=== PATIENT | female | born 1990 | race Caucasian/White ===

== ENCOUNTER 2016-02-09 15:04 | Emergency (ER) | payer OTHER ==
[~2016-02-09] VITALS: Ht 167.6 cm; Wt 65.9 kg
[~2016-02-09 15:04] MED LIST: PRENTAB26 PO
[2016-02-09 15:26] VITALS: Ht 167.6 cm; Wt 65.9 kg
[2016-02-09 16:58] LABS: BASO % 0.3 %; BASO ABS # 0.02 K/uL (0-0.2); COMPLETE YES; EOS % 1.5 %; HEMATOCRIT 36.2 % (37-47); IG% 0.1 %; LYMPH % 30.5 %; LYMPH ABS # 2.39 K/uL (1.2-3.4); MEAN CELL VOLUME 85.4 fL (80-100); MEAN CORPUSCULAR HEMOGLOBIN 29.7 pg (25-34); MEAN CORPUSCULAR HGB CONC 34.8 g/dl (32-36); MEAN PLATELET VOLUME 10.8 fL (7.4-10.4); MONO % 10.8 %; NEUT % 56.8 %; PLATELET COUNT 252 K/uL (130-400); RED BLOOD COUNT 4.24 M/uL (4.2-5.4); WHITE BLOOD COUNT 7.84 K/uL (4.8-10.8)
[2016-02-09 17:19] LABS: BUN/CREATININE RATIO 11.6 (10-20); CALCIUM 8.6 mg/dl (8.5-10.1); CREATININE 0.82 mg/dl (0.60-1.20)
[2016-02-09 17:21] LABS: ALB/GLOB RATIO 1.2 (0.9-2)
--- NOTE | 2016-02-09 18:11 | DIAGNOSTIC IMAGING REPORT ---
Limited ultrasound ECTOPIC CLINICAL HISTORY: EVAL IUP, VAGINAL BLEEDING pain TECHNIQUE: Transabdominal as well as transvaginal ultrasound COMPARISON STUDY: None FINDINGS: Uterus is midline. Endometrium is prominent at 11 mm. No well-defined intrauterine gestational sac. The ovaries are normal. Vascular flow is confirmed to both ovaries. Trace free fluid within the pelvic cul-de-sac. IMPRESSION: 1. Moderate endometrial prominence at 11 mm. 2. No evidence for an intrauterine gestational sac. 3. Normal vascular flow is confirmed to the ovaries. 4.. 7 mm left ovarian cyst Electronically signed by: Diogo Arndt M.D. 02/09/2016 6:09 PM
[2016-02-09 18:34] VITALS: BP 104/63; PULSE 69; TEMP 36.8; O2SAT 100
[2016-02-09 18:50] VITALS: BP 127/91; PULSE 101; TEMP 36.8; O2SAT 100
--- NOTE | 2016-02-09 19:00 | EMERGENCY ROOM VISIT NOTE ---
ED Visit Note First contact with patient: 16:21 CHIEF COMPLAINT: Vaginal bleeding, 6-7 weeks HISTORY OF PRESENT ILLNESS: Patient is a 6-7 week 25-year-old white female who presents to emergency department for evaluation of vaginal bleeding. Her last menstrual period was 12/22/15. She had 2 positive home test at home last week after she missed her period. She had been feeling well and was in her usual state of health until this morning, when she noted some bright red vaginal bleeding. She has only had to change her pad once today. She has some slight "pinching", but denies any cramping. She has not yet seen an OB for this . She denies any low back pain. She does not feel dizzy, weak, or faint. There has been no sweating or loss of consciousness. She denies trauma to the abdomen, recent illnesses, or fever. She is A-. REVIEW OF SYSTEMS: Review of systems as per HPI. All other systems reviewed were negative. 10 systems reviewed. PMH: Electronic medical records are reviewed and summarized as above/below. See Problem List. SOCIAL HISTORY: Patient lives at home. She is employed. Nonsmoker. PHYSICAL EXAM: Vital Signs: Reviewed Nurse's notes. CONSTITUTIONAL: Patient is a well-appearing 25-year-old white female who is awake and alert and in no acute distress. EYES: Pupils equal, round, reactive to light and accommodation. EOMs intact without nystagmus. Sclera are anicteric. ENT: Tympanic membranes intact, with normal landmarks. External canals are clear. Oral and nasopharynx are clear. Mucous membranes are moist, no lesions , tongue and gums appear normal. NECK: No bruits auscultated. Supple without lymphadenopathy. No thyromegaly. No meningeal signs. Full active range of motion without discomfort. CARDIOVASCULAR: Regular rate and rhythm, with normal S1 and S2, no murmur or gallop or rub is heard. No carotid bruits auscultated. No JVD. Peripheral pulses easily palpable. RESPIRATORY: Breath sounds equal and clear to auscultation without wheezes, rales, or rhonchi heard. Full and equal chest expansion without accessory muscle use or retractions. ABDOMEN: Bowel sounds are present. Abdomen is soft, nontender and nondistended. No guarding, rebound or rigidity. INTEGUMENTARY: No lesions or rash, normal skin turgor. LYMPH: No lymphadenopathy. EMERGENCY DEPARTMENT COURSE: IV access was obtained and laboratory studies were collected. H&H is 12.6 and 36.2. Platelets and coags are normal. Chemistries are unremarkable. Her quantitative hCG level is 7. Her blood type is A-. Pelvic ultrasound as noted below showed endometrial prominence measuring 11 mm, with no evidence for an intrauterine gestational sac. There was a small left- sided ovarian cyst. No evidence for torsion. The patient was administered RhoGAM per protocol. Ectopic and bleeding precautions were outlined with the patient. Discussed with her given her low hCG level, I suspected a threatened miscarriage, although this could also indicate a very early and the importance of close follow-up with BUSINESS OFFICE REPRESENTATIVE was discussed with her. She is discharged home with her family in good condition. Differential diagnoses also entertained included first trimester vaginal bleeding, subchorionic hemorrhage, hemorrhagic cystitis, PID, cervicitis, among others. Limited ultrasound ECTOPIC CLINICAL HISTORY: EVAL IUP, VAGINAL BLEEDING pain TECHNIQUE: Transabdominal as well as transvaginal ultrasound COMPARISON STUDY: None FINDINGS: Uterus is midline. Endometrium is prominent at 11 mm. No well-defined intrauterine gestational sac. The ovaries are normal. Vascular flow is confirmed to both ovaries. Trace free fluid within the pelvic cul-de-sac. IMPRESSION: 1. Moderate endometrial prominence at 11 mm. 2. No evidence for an intrauterine gestational sac. 3. Normal vascular flow is confirmed to the ovaries. 4.. 7 mm left ovarian cyst Problem List Medical Problems: (1) Headache Status: Resolved (2) HYPOTENSION NOS Status: Resolved (3) Syncope and collapse Status: Resolved Current/Historical Medications Scheduled Multivit/Min/Iron/Fol Ac/Pren ( Vitamin), 1 TAB PO DAILY Allergies Uncoded Allergies: BABY OIL (Allergy, Mild, HIVES, 01/26/15) Vital Signs Date Time Temp Pulse Resp B/P Pulse Ox O2 Delivery O2 Flow Rate FiO2 02/09/16 18:50 36.8 101 18 127/91 100 02/09/16 18:34 36.8 69 16 104/63 100 02/09/16 16:51 72 16 97/65 98 Room Air 02/09/16 15:26 36.8 81 18 119/69 100 Room Air Laboratory Results 02/09/16 16:47 Red Blood Count 4.24, Mean Corpuscular Volume 85.4, Mean Corpuscular Hemoglobin 29.7, Mean Corpuscular Hemoglobin Concent 34.8, Mean Platelet Volume 10.8, Neutrophils (%) (Auto) 56.8, Lymphocytes (%) (Auto) 30.5, Monocytes (%) (Auto) 10.8, Eosinophils (%) (Auto) 1.5, Basophils (%) (Auto) 0.3, Neutrophils # (Auto ) 4.45, Lymphocytes # (Auto) 2.39, Monocytes # (Auto) 0.85, Eosinophils # (Auto ) 0.12, Basophils # (Auto) 0.02 02/09/16 16:47 Test 02/09/16 16:47 White Blood Count 7.84 K/uL (4.8-10.8) Red Blood Count 4.24 M/uL (4.2-5.4) Hemoglobin 12.6 g/dL (12.0-16.0) Hematocrit 36.2 % (37-47) Mean Corpuscular Volume 85.4 fL (80-100) Mean Corpuscular Hemoglobin 29.7 pg (25-34) Mean Corpuscular Hemoglobin Concent 34.8 g/dl (32-36) Platelet Count 252 K/uL (130-400) Mean Platelet Volume 10.8 fL (7.4-10.4) Neutrophils (%) (Auto) 56.8 % Lymphocytes (%) (Auto) 30.5 % Monocytes (%) (Auto) 10.8 % Eosinophils (%) (Auto) 1.5 % Basophils (%) (Auto) 0.3 % Neutrophils # (Auto) 4.45 K/uL (1.4-6.5) Lymphocytes # (Auto) 2.39 K/uL (1.2-3.4) Monocytes # (Auto) 0.85 K/uL (0.11-0.59) Eosinophils # (Auto) 0.12 K/uL (0-0.5) Basophils # (Auto) 0.02 K/uL (0-0.2) RDW Standard Deviation 39.9 fL (36.4-46.3) RDW Coefficient of Variation 12.8 % (11.5-14.5) Immature Granulocyte % (Auto) 0.1 % Immature Granulocyte # (Auto) 0.01 K/uL (0.00-0.02) Prothrombin Time 11.0 SECONDS (9.0-12.0) Prothromb Time International Ratio 1.0 (0.9-1.1) Activated Partial Thromboplast Time 25.4 SECONDS (21.0-31.0) Partial Thromboplastin Ratio 1.0 Anion Gap 7.0 mmol/L (3-11) Est Creatinine Clear Calc Drug Dose 98.1 ml/min Estimated GFR () 115.3 Estimated GFR (Non- 99.5 BUN/Creatinine Ratio 11.6 (10-20) Calcium Level 8.6 mg/dl (8.5-10.1) Total Bilirubin 1.0 mg/dl (0.2-1) Aspartate Amino Transf (AST/SGOT) 11 U/L (15-37) Alanine Aminotransferase (ALT/SGPT) 16 U/L (12-78) Alkaline Phosphatase 83 U/L (45-117) Total Protein 7.1 gm/dl (6.4-8.2) Albumin 3.8 gm/dl (3.4-5.0) Globulin 3.3 gm/dl (2.5-4.0) Albumin/Globulin Ratio 1.2 (0.9-2) Human Chorionic Gonadotropin, Quant 7 mIU/mL Departure Information Impression Primary Impression: Vaginal bleeding Referrals No Doctor, Assigned (PCP) Patient Instructions A Signature Page, My [facility] [place] [facility] Additional Instructions Acetaminophen(Tylenol) may be used for fever or pain. Use 1000mg every six hours as needed. Avoid using more than 3000mg in a 24 hour period. Rest and avoid any heavy lifting or strenuous activity. Strict vaginal rest-no tampons, douching or intercourse. Drink plenty of fluids. Diet as tolerated. Follow up with BUSINESS OFFICE REPRESENTATIVE by phone tomorrow to set up a follow-up appointment. Return to the ED for worsening pain, heavier bleeding (soaking a pad in an hour or less, passing clots larger than your fist), lightheadedness, dizziness, passing out, worsening of her condition or as needed.
[2016-02-09 19:22] VITALS: BP 108/65; PULSE 58; O2SAT 98
== END 2016-02-09 19:24 | disposition home or self-care (01) ==
LOC: C.EDB 15:06 → C.EDC 19:24
DX: O99.89 Other specified diseases and conditions complicating pregnancy, childbirth and the puerperium (principal); N93.9 Abnormal uterine and vaginal bleeding, unspecified; Z3A.01 Less than 8 weeks gestation of pregnancy

== ENCOUNTER 2016-12-31 01:11 | Emergency (ER) | payer OTHER, BC ==
[~2016-12-31] VITALS: Ht 167.6 cm; Wt 75.5 kg
[2016-12-31 01:14] VITALS: TEMP 36.9; Ht 167.6 cm; Wt 75.5 kg
--- NOTE | 2016-12-31 01:45 | EMERGENCY ROOM VISIT NOTE ---
History First contact with patient: 01:21 Chief Complaint: LACERATION/CUT (SUT/DERMABOND) Stated Complaint: COFFEE URN FELL ON HEAD,LACERATION/PAIN, 22WKS PRG Nursing Triage Summary: Patient reports a coffee pot fell on her head at work. Patient has blood and swelling to top of head. Unable to visualize laceration at this time. History of Present Illness The patient is a 26 year old female who presents to the Emergency Room with complaints of a laceration to her head. The patient states that she was at work and a coffee pot fell onto her head. She reports pain in her head which she rates a 7/10. There was no loss of consciousness. She reports some nausea , but no vomiting. No blurred vision or slurred speech. Tetanus shot is up-to- date. There is no active bleeding. The patient reports she is 22 weeks . Review of Systems A complete 10 point review of systems was reviewed with the patient with pertinent positives and negatives as per history of present illness. All else were negative. Past Medical/Surgical History Medical Problems: (1) Headache (2) HYPOTENSION NOS (3) No Known Active Medical Problems (4) Syncope and collapse Social History Smoking Status: Never Smoker Housing Status: lives with family Current/Historical Medications Scheduled Multivit/Min/Iron/Fol Ac/Pren ( Vitamin), 1 TAB PO DAILY Physical Exam Vital Signs Date Time Temp Pulse Resp B/P (MAP) Pulse Ox O2 Delivery O2 Flow Rate FiO2 12/31/16 01:51 86 18 127/72 100 12/31/16 01:14 36.9 82 18 123/70 100 Room Air Physical Exam VITALS: Vitals are noted on the nurse's note and reviewed by myself. Vital signs stable. GENERAL: This is a 26-year-old female, in no acute distress, nondiaphoretic, well-developed well-nourished. SKIN: There is a 1.5 cm laceration to the parietal aspect of the scalp as well as a small abrasion. There is no active bleeding. The laceration is non- gaping. HEAD: Normocephalic atraumatic. EARS: External auditory canals clear, tympanic membranes pearly delaney without erythema or effusion bilaterally. No hemotympanum. EYES: Pupils equal round and reactive to light and accommodation. Extraocular movements intact. NECK: Supple without nuchal rigidity. Cervical spine is nontender. HEART: Regular rate and rhythm without murmurs gallops or rubs. LUNGS: Clear to auscultation bilaterally without wheezes, rales or rhonchi. MUSCULOSKELETAL: Strength 5/5 throughout. NEURO: Patient was alert and oriented to person place and time. Normal sensation to light and sharp touch. No focal neurological deficits. Medical Decision & Procedures Medical Decision Differential diagnosis includes concussion, intracranial hemorrhage, contusion, scalp laceration, among others. The patient was evaluated as above. She is neurologically intact and there is no evidence of intracranial hemorrhage or severe head injury. The laceration was repaired using Dermabond. The patient tolerated the procedure well. Customary head injury precautions were reviewed with the patient. She verbalized understanding of my assessment and treatment plan and was discharged home in good condition. Medication Reconcilliation Current Medication List: was personally reviewed by me Blood Pressure Screening Patient's blood pressure: Normal blood pressure Impression Primary Impression: Laceration of scalp Additional Impression: Closed head injury Departure Information Dispostion Home / Self-Care Condition GOOD Referrals No Doctor, Assigned (PCP) Patient Instructions ED Head Injury Closed, My [facility] Additional Instructions Allow the skin glue to fall off on its own in the next 2-3 days. Tylenol as needed for pain. Return to the emergency department with vomiting, passing out, blurred vision, slurred speech, or any other new/concerning symptoms. Problem Qualifiers Primary Impression: Laceration of scalp Encounter type: initial encounter Qualified Codes: S01.01XA - Laceration without foreign body of scalp, initial encounter Additional Impression: Closed head injury Encounter type: initial encounter Qualified Codes: S09.90XA - Unspecified injury of head, initial encounter
[2016-12-31 01:51] VITALS: BP 127/72; PULSE 86; O2SAT 100
== END 2016-12-31 01:53 | disposition home or self-care (01) ==
LOC: C.EDB 01:13 → C.EDA 01:53
DX: S01.01XA Laceration without foreign body of scalp, initial encounter (principal); W22.8XXA Striking against or struck by other objects, initial encounter; Y92.89 Other specified places as the place of occurrence of the external cause; Y99.0 Civilian activity done for income or pay; Z3A.22 22 weeks gestation of pregnancy

== ENCOUNTER 2017-04-29 14:10 | Inpatient (IN) | payer BC ==
[~2017-04-29] VITALS: Ht 165.1 cm; Wt 84.5 kg
[~2017-04-29 14:10] MED LIST changes: +CEFAZOLIN IV 2,000 MG in SYRINGE 0 ML IV SCH
[2017-04-29 14:28] VITALS: Ht 165.1 cm; Wt 84.5 kg
[2017-04-29] MEDS ORDERED: LACTATED RINGER'S 1000ML 1,000 ML IV SCH ×2 (15:14→18:17)
[2017-04-29] MEDS ORDERED: CITRIC ACID/SODIUM CITRATE 15 ML UDC PO ONE (15:15)
[2017-04-29] MEDS ORDERED: PROMETHAZINE HCL INJ 25 MG/ML 1 ML VIAL ONE (15:21)
[2017-04-29] MEDS ORDERED: OXYTOCIN INJ 10 UNITS/ML VIAL ONE ×3 (15:21→17:57)
[2017-04-29] MEDS ORDERED: FENTANYL CITRATE INJ 50 MCG/1 ML 2 ML VIAL ONE (15:21)
[2017-04-29] MEDS ORDERED: MoRPHine SULFATE PF 1 MG/ML 10 ML AMP/VIAL ONE (15:21)
[2017-04-29 15:34] LABS: BASO % 0.2 %; BASO ABS # 0.02 K/uL (0-0.2); EOS % 0.4 %; EOS ABS # 0.04 K/uL (0-0.5); HEMATOCRIT 33.5 % (37-47); HEMOGLOBIN 11.7 g/dL (12.0-16.0); IG# 0.08 K/uL (0.00-0.02); LYMPH % 18.3 %; LYMPH ABS # 1.86 K/uL (1.2-3.4); MEAN CELL VOLUME 88.2 fL (80-100); MEAN CORPUSCULAR HEMOGLOBIN 30.8 pg (25-34); MEAN CORPUSCULAR HGB CONC 34.9 g/dl (32-36); MEAN PLATELET VOLUME 10.1 fL (7.4-10.4); MONO % 7.7 %; MONO ABS # 0.78 K/uL (0.11-0.59); NEUT % 72.6 %; NEUT ABS # 7.39 K/uL (1.4-6.5); PLATELET COUNT 225 K/uL (130-400); RED CELL DISTRIBUTION WIDTH CV 14.1 % (11.5-14.5); RED CELL DISTRIBUTION WIDTH SD 45.7 fL (36.4-46.3); WHITE BLOOD COUNT 10.17 K/uL (4.8-10.8)
--- NOTE | 2017-04-29 16:10 | HISTORY & PHYSICAL EXAMINATION ---
DATE OF ADMISSION: 04/29/2017 CHIEF COMPLAINT: Term and breech presentation. HISTORY OF PRESENT ILLNESS: The patient is a 26-year-old 3, para 1, at 39 weeks and 1 day gestation, who was sent over to labor and delivery on the afternoon of 04/29/2017 secondary to baby being in the breech position at her visit today. A nonstress test was completed and noted to be category 1. An ultrasound of her positioning was performed, noting that the baby was in the breech position and funic presentation. Therefore, she was sent over to labor and delivery for a primary section. Her care has been uncomplicated otherwise. PAST MEDICAL HISTORY: The patient denies any previous medical history. PAST SURGICAL HISTORY: The patient denies any previous surgeries. She had 1 term vaginal delivery. SOCIAL HISTORY: The patient denies tobacco, alcohol or drug use. MEDICATIONS: vitamins. PHYSICAL EXAMINATION: VITAL SIGNS: Please see vital sign spread sheet. GENERAL: The patient is awake, alert and oriented x3. She is in no acute distress. HEART: Regular rate and rhythm. LUNGS: Clear to auscultation bilaterally. ABDOMEN: Soft, gravid uterus, appropriate for gestational age. VAGINAL: heart tones category 1. Contractions are regular. ASSESSMENT AND PLAN: The patient will be admitted to labor and delivery for a primary section secondary to breech presentation and funic presentation.
[2017-04-29] MEDS ORDERED: PHENYLEPHRINE HCL INJ 10 MG/ML VIAL ONE (17:40)
--- NOTE | 2017-04-29 18:22 | [facility] Post Operative Brief Note ---
Immediate Operative Summary Operative Date Apr 29, 2017. Pre-Operative Diagnosis Term , breech presentation, funic presentation, erin. Post-Operative Diagnosis Same as above. Procedure(s) Performed Primary caesarean section. Delivery of live female child at 1742. Surgeon Dr. Oliver Knotter Surgeon(s) Dr. Zuniga Estimated Blood Loss 500cc Findings Consistent with Post-Op Diagnosis Fluids (cc crystalloids) 1000 Specimens A: Placenta-exam B: Cord blood Drains Ward to gravity Anesthesia Type Spinal Complication(s) none Disposition Accompanied Pt To Recover: no Disposition: L&D
[2017-04-29] MEDS ORDERED: SODIUM CHLORIDE 0.9% 1000ML 1,000 ML IV PRN (18:30)
[2017-04-29] MEDS ORDERED: NALBUPHINE HCL INJ 10 MG/ML AMP IV PRN (18:30)
[2017-04-29] MEDS ORDERED: BENZOCAINE 20% AER SPR 82.5 GM CAN EXT PRN (18:30)
[2017-04-29] MEDS ORDERED: MoRPHine SULFATE 2 MG/ML CARP IV PRN (18:30)
[2017-04-29] MEDS ORDERED: EpHEDrine SULFATE INJ 50 MG/ML AMP IV PRN (18:30)
[2017-04-29] MEDS ORDERED: DIPHTHERIA/TETANUS/PERTUSSIS 0.5 ML SYR/VIAL IM. ONE (18:30)
[2017-04-29] MEDS ORDERED: SENNA 8.6 MG TAB PO PRN (18:30)
[2017-04-29] MEDS ORDERED: ONDANSETRON INJ 2 MG/ML 2 ML VIAL IV PRN (18:30)
[2017-04-29] MEDS ORDERED: NALOXONE HCL 0.4 MG/1 ML VIAL/CARP IV PRN (18:30)
[2017-04-29] MEDS ORDERED: SUPERCREAM 0.870 % 15GM JAR EXT PRN (18:30)
[2017-04-29] MEDS ORDERED: DiphenhydrAMINE HCL 50 MG/ML VIAL IV PRN (18:30)
[2017-04-29] MEDS ORDERED: MAGNESIUM HYDROXIDE SUSP 30 ML UDC PO PRN (18:30)
[2017-04-29] MEDS ORDERED: NO NARCOTICS OR SEDATIVES SCH (18:30)
[2017-04-29] MEDS ORDERED: HYDROCORTISONE ACETATE 25 MG SUPP PR PRN (18:30)
[2017-04-29] MEDS ORDERED: MoRPHine SULFATE PF 1 MG/ML 10 ML AMP/VIAL INT SPINAL PRN (18:30)
[2017-04-29] MEDS ORDERED: LANOLIN OINT EXT PRN (18:30)
[2017-04-29] MEDS ORDERED: KETOROLAC TROMETHAMINE 30 MG/ML VIAL IV. PRN (18:30)
[2017-04-29] MEDS ORDERED: NALOXONE HCL INJ 1 MG in SODIUM CHLORIDE 0.9% 1000ML 1,000 ML IV PRN (18:30)
[2017-04-29] MEDS ORDERED: LACTATED RINGER'S 1000ML 500 ML IV PRN (18:30)
[2017-04-29] MEDS ORDERED: NALOXONE HCL INJ 0.08 MG in SYRINGE 1.8 ML IV PRN (18:30)
--- NOTE | 2017-04-29 18:30 | Anesthesiology Progress Note ---
Anesthesia Post Op Note Date & Time Apr 29, 2017 at 18:30 Notes Mental Status: alert / awake / arousable, participated in evaluation Pt Amnestic to Procedure: Yes Nausea / Vomiting: adequately controlled Pain: adequately controlled Airway Patency, RR, SpO2: stable & adequate BP & HR: stable & adequate Hydration State: stable & adequate Neuraxial Anesthesia: was administered, sensory block is resolving Anesthetic Complications: no major complications apparent
[2017-04-29] MEDS: OXYTOCIN INJ 30 UNITS in LACTATED RINGER'S 1000ML 1,000 ML IV SCH (20:16)
--- NOTE | 2017-04-29 20:39 | OPERATIVE REPORT ---
DATE OF OPERATION: 04/29/2017 PREOPERATIVE DIAGNOSES: 1. Term intrauterine at 39 weeks and 1 day gestation. 2. Breech presentation. 3. Funic presentation. 4. Erin. POSTOPERATIVE DIAGNOSES: Same. OPERATIVE PROCEDURE: Primary low transverse section. SURGEON: Tyler Oliver DO TECHNICAL COORDINATOR: Guru Cummins MD ANESTHESIA: Spinal. ESTIMATED BLOOD LOSS: 500 mL. IV FLUIDS: 1000 mL crystalloids. URINE OUTPUT: 200 mL clear yellow urine. SPECIMENS: Cord blood and placenta to Pathology. DRAINS: Ward to gravity. COMPLICATIONS: None. DISPOSITION: To labor and delivery. OPERATIVE FINDINGS: The patient delivered a viable female infant in the double footling breech position via primary section at 1742. Apgars were 9 at 1 minute and 9 at 5 minutes. Please see candle molder hand's notes for further baby assessment. Cord blood was then obtained and an intact placenta with 3-vessel cord was delivered at 1743 manually and sent to Pathology. Grossly normal uterus and bilateral tubes and ovaries were noted. Both patient and baby tolerated the surgery well and were sent to recovery with stable vital signs. INDICATIONS FOR PROCEDURE: The patient is a 26-year-old 3, para 1 at 39 weeks and 1 day gestation who was seen today in the office for a routine visit. During her exam, she was found to be in the breech presentation which was confirmed via ultrasound. On ultrasound, it was noted to also have a funic presentation. The patient was erin every 4-5 minutes regularly; therefore, she was sent over to labor and delivery for a primary section. Risks, benefits and alternatives were discussed with patient and informed consent was obtained. OPERATIVE PROCEDURE IN DETAIL: The patient was taken to the operating room where spinal anesthesia was administered. She was immediately placed in dorsal supine position with a left lateral tilt and was prepped and draped in a manner appropriate for the procedure. Once anesthesia was found to be adequate, a Pfannenstiel skin incision was made 2 fingerbreadths above the pubic symphysis and was carried down through to a layer of the rectus fascia. Fascia was nicked in the midline and extended bilaterally with curved López scissors. The superior aspect of the fascial incision was grasped with Chano clamps, elevated, and rectus muscles were dissected off with the use of the electrocautery and curved López scissors. Likewise, the inferior aspect of the fascial incision was grasped with Chano clamps, elevated, and rectus muscles were dissected off with the use of the curved López scissors and electrocautery. Rectus muscles were in midline. Peritoneum was entered bluntly and extended cephalocaudally with gentle traction. A bladder blade was then placed within the abdomen. The vesicouterine peritoneum was identified and a bladder flap was created with Metzenbaum scissors and digital traction. The bladder flap was reincorporated beneath the [place]stow blade. A transverse incision was then made on the uterus and extended bilaterally with digital traction. Clear amniotic fluid was noted. The baby was noted to be in double footling breech position and was delivered with breech maneuvers without complication. Baby was bulb suctioned at delivery. Cord was clamped x2 and cut. Baby was immediately handed to an awaiting candle molder hand for further evaluation and management. Please see their notes for further baby assessment. Cord blood was then obtained and intact placenta with 3-vessel cord was delivered manually at 1743 and sent to Pathology. The uterus was then exteriorized and wrapped in a moist laparotomy sponge. The uterus was then cleared of any trailing membranes and debris with a laparotomy sponge. The uterine incision was then grasped with ring forceps at 4 quadrants and was then closed with 0 Vicryl suture in a continuous locking fashion. A second layer of 0 Vicryl suture was used in imbricating fashion to ensure hemostasis. Any residual bleeding was suture ligated with 0 Vicryl suture in a [id number] interrupted fashion. The bladder flap was reapproximated to the lower uterine segment with 3-0 Vicryl suture in continuous running fashion. Excellent hemostasis was noted. The posterior cul-de-sac was then irrigated with warm saline solution. The uterus was then placed back within its normal anatomic position within the abdomen. The anterior cul-de-sac was then irrigated with warm saline solution. All instruments were then removed from the abdomen. Excellent hemostasis was again noted at the uterine incision. The peritoneum was then grasped with Reny clamps at 4 quadrants, it was then closed with 2-0 Vicryl suture in a continuous running fashion. Rectus muscle was reapproximated with 2-0 Vicryl suture in continuous running fashion. Rectus fascia was then closed with 0 Vicryl suture in continuous running fashion. Subcutaneous tissue was reapproximated with 2-0 Vicryl suture in a continuous running fashion. Skin was then closed with nghia. Excellent hemostasis was noted through all tissue layers. At this point, the procedure was found to be complete. All sponge and instrument counts were found to be correct x2. Both patient and baby tolerated the surgery well and were sent to recovery with stable vital signs. I attest to the content of the Intraoperative Record and any orders documented therein. Any exception s are noted below.
[2017-04-29 21:20] VITALS: BP 103/59; PULSE 82; TEMP 36.5; O2SAT 98
[2017-04-29 21:30] VITALS: O2SAT 98
[2017-04-29 22:20] VITALS: O2SAT 99
[2017-04-29 23:05] VITALS: BP 116/77; PULSE 90; TEMP 36.4; O2SAT 99
[2017-04-29 23:30] VITALS: O2SAT 99
[2017-04-30] VITALS (15 sets, daily range): BP systolic 94–103; BP diastolic 56–70; PULSE 69–76; TEMP 36.7–36.9; O2SAT 96–99
[2017-04-30] MEDS: OXYTOCIN INJ 30 UNITS in LACTATED RINGER'S 1000ML 1,000 ML IV SCH (05:17)
[2017-04-30 06:35] LABS: BASO % 0.2 %; BASO ABS # 0.02 K/uL (0-0.2); EOS % 0.3 %; EOS ABS # 0.03 K/uL (0-0.5); HEMATOCRIT 30.9 % (37-47); HEMOGLOBIN 10.8 g/dL (12.0-16.0); IG# 0.05 K/uL (0.00-0.02); LYMPH % 17.6 %; LYMPH ABS # 1.93 K/uL (1.2-3.4); MEAN CELL VOLUME 88.5 fL (80-100); MEAN CORPUSCULAR HEMOGLOBIN 30.9 pg (25-34); MEAN PLATELET VOLUME 10.3 fL (7.4-10.4); MONO % 8.9 %; MONO ABS # 0.97 K/uL (0.11-0.59); NEUT % 72.5 %; NEUT ABS # 7.94 K/uL (1.4-6.5); PLATELET COUNT 202 K/uL (130-400); RED CELL DISTRIBUTION WIDTH CV 14.1 % (11.5-14.5); RED CELL DISTRIBUTION WIDTH SD 45.6 fL (36.4-46.3); WHITE BLOOD COUNT 10.94 K/uL (4.8-10.8)
--- NOTE | 2017-04-30 09:08 | OB/GYN Progress Note ---
SANDING MACHINE TENDER Progress Note Date of Service: Apr 30, 2017. Patient is seen and examined. She feels well, no complaints. Pain is under control Not OOB yet Tolerating clear diet with out N&V Flatus + BM neg Feels hungry and likes to eat regular diet Bleeding is minimal No fever/ chills/ CP/ SOB/ N&V/ Leg pain Breast feeding without problems Date Time Temp Pulse Resp B/P (MAP) Pulse Ox O2 Delivery O2 Flow Rate FiO2 04/30/17 07:25 98 Room Air 04/30/17 07:25 18 98 04/30/17 07:25 36.7 72 18 98/68 (78) 98 Room Air 04/30/17 05:30 20 99 04/30/17 04:30 20 99 04/30/17 04:25 36.7 76 18 94/63 (73) 96 Room Air 04/30/17 03:30 18 98 04/30/17 02:30 20 99 04/30/17 01:30 18 99 04/30/17 00:30 18 99 04/29/17 23:30 19 99 04/29/17 23:05 36.4 90 20 116/77 (90) Room Air 04/29/17 23:05 99 Room Air 04/29/17 22:20 20 99 04/29/17 21:30 18 98 04/29/17 21:20 36.5 82 18 103/59 (74) 98 Room Air PE: General: Alert, orientedx3, NAD CVS: S1S2 RRR Lungs; CTAB Abd: soft, NT, ND, BS+, fundus firm, below Umbilicus Dressing: Clean, dry, intact Perineum intact, Lochia rubra minimal Ext; NT, no edema AP: 26 yo s/p C Section, pod# 1 VSS Afebrile doing well Continue routine postop care Encourage ambulation, PO intake All questions were answered
[2017-04-30] MEDS: DOCUSATE SODIUM 100 MG CAP PO SCH ×3 (09:46→20:56)
[2017-04-30] MEDS: PRENATAL VITAMIN TAB PO SCH (09:46)
[2017-04-30] MEDS: FERROUS SULFATE 325 MG TAB PO SCH (09:47)
[2017-04-30] MEDS: SIMETHICONE 80 MG CHEW PO SCH ×4 (09:47→20:56)
[2017-04-30] MEDS ORDERED: KETOROLAC TROMETHAMINE 30 MG/ML VIAL IV. PRN (11:30)
[2017-04-30] MEDS ORDERED: DC INTRASPINAL MORPHINE ONE (11:30)
[2017-04-30] MEDS ORDERED: ONDANSETRON INJ 2 MG/ML 2 ML VIAL IV PRN (11:30)
[2017-04-30] MEDS ORDERED: OXYCODONE/ACETAMINOPHEN 5-325 TAB PO PRN ×2 (11:30)
[2017-04-30] MEDS ORDERED: ZOLPIDEM TARTRATE 5 MG TAB PO PRN (11:30)
[2017-04-30] MEDS: IBUPROFEN 600 MG TAB PO PRN ×2 (15:07→23:48)
[2017-04-30] MEDS ORDERED: BISACODYL 5 MG TABEC PO ONE (22:00)
[2017-05-01 06:42] LABS: HEMOGLOBIN 10.7 g/dL (12.0-16.0)
[2017-05-01] MEDS: SIMETHICONE 80 MG CHEW PO SCH ×3 (08:27→17:27)
[2017-05-01] MEDS: PRENATAL VITAMIN TAB PO SCH (08:27)
[2017-05-01] MEDS: DOCUSATE SODIUM 100 MG CAP PO SCH (08:27)
[2017-05-01] MEDS: FERROUS SULFATE 325 MG TAB PO SCH (08:27)
[2017-05-01 08:50] VITALS: BP 106/69; PULSE 76; TEMP 36.7
[2017-05-01] MEDS ORDERED: MTR600X PO (11:44)
[2017-05-01] MEDS ORDERED: OXYC-57 PO (11:44)
--- NOTE | 2017-05-01 11:44 | OB/GYN Progress Note ---
TEST DESIGNER Progress Note Date of Service: May 01, 2017. Patient is seen and examined. She feels well, no complaints. Likes to be discharged tonight Pain is under control with oral meds. Ambulating without dizziness Voiding without difficulty Tolerating regular diet with out N&V Flatus + BM + Bleeding is minimal No fever/ chills/ CP/ SOB/ N&V/ Leg pain Breast feeding without problems Date Time Temp Pulse Resp B/P (MAP) Pulse Ox O2 Delivery O2 Flow Rate FiO2 05/01/17 08:50 36.7 76 20 106/69 (81) 04/30/17 23:50 99 Room Air 04/30/17 23:50 36.8 75 20 100/70 (80) Room Air 04/30/17 15:25 Room Air 04/30/17 15:25 36.9 69 20 103/66 (78) Room Air Last 24 Hours Test 05/01/17 06:18 Hemoglobin 10.7 g/dL Hematocrit 31.0 % PE: General: Alert, orientedx3, NAD CVS: S1S2 RRR Lungs; CTAB Abd: soft, NT, ND, BS+, fundus firm, below Umbilicus Incision: Danelle Clean, dry, intact Perineum intact, Lochia rubra minimal Ext; NT, no edema AP: 26 yo s/p C Section, pod# 2 VSS Afebrile doing well Continue routine postop care Encourage ambulation, PO intake All questions were answered D/C home in the evening
--- NOTE | 2017-05-01 11:45 | Discharge Instructions ---
Discharge Instructions Date of Service May 01, 2017. Admission Reason for Admission: Check Labor - Breech Presentation Discharge Discharge Diagnosis / Problem: Primary Csection Discharge Goals Goal(s): Routine recovery after Medications Continue Dispensed Medications: lansinoh Activity Recommendations Activity Limitations: as noted below ACTIVITY RECOMMENDATIONS: * Gradual return to full activity over the next 2-3 weeks. * No lifting - nothing heavier than baby over the next 2-3 weeks. * Do not engage in vigorous exercise, sexual activity or sports until cleared by your physician. * Do not drive or operate any motorized equipment until cleared by your physician. * You may shower/bathe daily. BREAST CARE: If you are not breast feeding: * Wear a supportive bra 24 hours a day for one to two weeks. * Avoid stimulating your breasts and nipples as much as possible during the first few weeks after delivery. * When taking a shower, have the warm water hit your back, not breasts. * When your breasts feel full, apply ice packs. Usually three to four times a day helps ease the discomfort. * Take a mild pain medication (Tylenol/Motrin) when you are uncomfortable. If breast feeding: * Use breast milk to lubricate nipples. Lansinoh cream may be used for sore nipples. You do not need to remove cream prior to breast feeding. If using a different brand of cream, check the label for directions regarding removal of cream prior to nursing. * Wear a supportive bra. * If having problems with breasts or breast feeding, call a art consultant or your health care provider. OVER THE COUNTER MEDICATION: * For discomfort or pain, you may use Acetaminophen (Tylenol), Ibuprofen (Advil ), or Naproxen (Aleve) following the package directions. * For constipation you may use Colace following the package directions. SPECIAL CARE INSTRUCTIONS: When you are discharged from the hospital, it is important for you to follow the instructions listed below: * During the first week at home, you should be able to care for yourself and your baby. In addition, the usual light household activities are encouraged. * Limit your activities to the way you feel. Do not try to clean the house or move furniture. Be sensible. * If you actively engage in sports and have done so up until the time of your delivery, you may resume these activities as soon as you feel able. This may take up to one month or even longer. Use good judgment. * Continue to take your vitamins for at least six weeks after the of your baby. * Your diet need not be limited unless you were on a special diet before your delivery. Breast-feeding mothers need around 2500 calories per day and at least 64-80 ounces of fluid per day (8 to 10 glasses). * You should eat foods from the four major food groups. Crash diets or fad diets are to be avoided. Eating lean meats, fresh fruits and vegetables, low-fat dairy products, high fiber foods and a regular exercise program, will help you get back to your pre- weight without putting your health at risk. * Constipation is sometimes a problem after delivery. Take a mild laxative as needed. If breast feeding, Milk of Magnesia is acceptable to use. You may use a suppository or Fleets enema if no episiotomy. * A daily shower or tub bath is suggested. Be sure to thoroughly and gently dry the perineum. * A bloody vaginal discharge will usually continue until around four weeks post . A small amount of bleeding may continue for as long as six weeks. Vaginal discharge changes from the bright red bleeding after delivery to pink then brownish and finally yellowish-pink before becoming white and disappearing. * Bleeding may increase with activity. Your first period may come in 4-8 weeks. If you are breast feeding, your period may be delayed even longer. * Atkins (sex) can begin whenever both you and your partner feel comfortable and do not have any form of genital infection. It is recommended that you wait at least six weeks for internal and external healing to occur. If you have questions, please talk to your health care practitioner. A condom should be used to prevent infection and . * Foreplay, gentle intercourse and lubrication is very important the first several times to prevent pain. A water-based lubricant such as K-Y jelly or Astroglide may be used. * Tampons and/or Douching should be avoided until after six weeks check-up. * If you have RH negative blood and your baby is RH positive, you will receive RHOGAM by injection prior to discharge. The nurse will give you a card to keep with you that has the date and place that you received RHOGAM after delivery. * During your care, you had a Rubella screen done to check for the presence of rubella antibodies in your blood. If your test was negative, you will receive a Rubella vaccine prior to discharge. This vaccine may cause a fever, soreness at the injection site and flu-like symptoms. If these symptoms persist, notify your health care practitioner. is not advised for three months after a Rubella vaccine. * Verbalizes understanding of car seat law as reviewed with patient nursing. * Car Seat hand-out given and reviewed with patient by nursing. * Shaken baby information reviewed with patient by nursing. Call you doctor if: * Heavy bleeding (saturating several pads an hour) or passing clots the size of your fist. * A fever >101 degrees F (38.3 degrees C) on two occasions four hours apart and /or chills. * Unusual pain in the pelvic or vaginal areas. Pain should improve each day . * Call the doctor for any increased redness, drainage or swelling around the incision and any pain unrelieved by prescribed pain medication. * Any signs or symptoms of phlebitis (possible blood clots forming in the veins ): leg pain, warm, red or swollen area on leg. * "Baby Blues" lasting longer than two weeks. If you have any questions or concerns, call your health care practitioner at . FOLLOW-UP VISIT: * Incision check (staple removal) in 1 week. Please call doctor's office at to set up appointment. * Please call the office at to schedule a 6 week examination. It is important you keep this appointment. * It is important for you to make arrangements for either yearly or twice yearly check-ups thereafter. . Current Hospital Diet Patient's current hospital diet: Regular OB Diet Discharge Diet Recommended Diet: Regular Diet Procedures Procedures Performed: Primary caesarean section. Delivery of live female child at 1742. Pending Studies Studies pending at discharge: no Medical Emergencies . Who to Call and When: Medical Emergencies: If at any time you feel your situation is an emergency, please call 911 immediately. . Non-Emergent Contact Non-Emergency issues call your: Specialist Call Non-Emergent contact if: temperature is above 100.5, temperature is above 101, your pain is not controlled, your pain is worsening, wound has increased drainage, wound has increased redness . . "Provider Documentation" section prepared by [employer]. .
[2017-05-01] MEDS: IBUPROFEN 600 MG TAB PO PRN (16:10)
[2017-05-01 16:19] VITALS: BP 121/83; PULSE 91; TEMP 36.7
[2017-05-01] MEDS ORDERED: BISACODYL 10 MG SUPP PR PRN (18:30)
[2017-05-01 19:06] VITALS: BP_DIAS 83; PULSE 91; TEMP 36.7
== END 2017-05-01 19:45 | disposition home or self-care (01) | DRG 766 ==
LOC: C.OPB 14:10 → C.LD 14:12 → C.OPB 15:16 → C.LD 15:16 → C.OBG 20:59
PROVIDERS: ADMIT Obstetrics & Gynecology; ATTEND Obstetrics & Gynecology
PROC: 10D00Z1 Extraction of Products of Conception, Low, Open Approach (ICD-10-PCS; principal; 2017-04-29 16:30)
DX: O32.8XX0 Maternal care for other malpresentation of fetus, not applicable or unspecified (principal); Z3A.39 39 weeks gestation of pregnancy; Z37.0 Single live birth